=== PATIENT | male | born 1945 | race Two or more races ===

== ENCOUNTER 2021-11-28 08:23 | Inpatient (IN) | payer OTHER ==
[~2021-11-28] VITALS: Ht 165.1 cm; Wt 73.6 kg
[~2021-11-28 08:23] MED LIST: ASPI-543 PO; ATOR40TA52 PO; CALC-437 OR; FENO160T8 PO; GABA100C9 PO; LEVO25TA6 PO; TAMS0.4C36 PO
[2021-11-28] MEDS ORDERED: NITROGLYCERIN 0.4 MG SL TAB SL ONE (08:45)
[2021-11-28] MEDS ORDERED: ASPirin 81 mg TAB PO ONE (08:45)
[2021-11-28 09:07] LABS: Basophils # (auto) 0.1 10 ^3/uL (0-0.2); Basophils % (auto) 0.9 % (0.0-2.0); Eosinophils # (auto) 0 10 ^3/uL (0-0.8); Hematocrit 40.6 % (41.0-53.0); Hemoglobin 13.4 g/dL (13.5-17.5); Lymphocytes # (auto) 2.4 10 ^3/uL (0.4-5.4); Lymphocytes % (auto) 38.9 % (10.0-50.0); Mean Corpuscular Hemoglobin 28.2 pg (28.0-32.0); Mean Corpuscular Hgb Conc. 33.1 g/dL (32.0-36.0); Mean Corpuscular Volume 85.2 fL (80.0-100.0); Monocytes # (auto) 0.6 10 ^3/uL (0-1.3); Monocytes % (auto) 10.2 % (0.0-12.0); Nucleated Red Blood Cells % 0.2 %; Red Blood Cells 4.76 10^6/uL (4.5-5.90); Red Cell Distribution Width 15.5 % (11.8-14.3)
[2021-11-28 09:22] LABS: INR 1.01 (0.9-1.15); Partial Thromboplastin Time 33.1 sec (23.6-33.0)
[2021-11-28 09:30] LABS: Albumin 3.1 g/dL (3.4-5.0); Anion Gap 6 (5-15); Blood Urea Nitrogen 21 mg/dL (7-18); Calcium 8.9 mg/dL (8.5-10.1); Carbon Dioxide 22 mmol/L (21-32); Chloride 103 mmol/L (98-107); Glucose 129 mg/dL (74-106); Potassium 4.4 mmol/L (3.5-5.1); Sodium 131 mmol/L (136-145)
[2021-11-28 09:36] LABS: BUN/Creatinine Ratio 10.9; GFR African American 44 mL/min; GFR Non-African American 36 mL/min
[2021-11-28 09:45] LABS: Aspartate Aminotransferase 40 U/L (15-37)
[2021-11-28 09:50] LABS: Alanine Aminotransferase 36 U/L (16-61); Alkaline Phosphatase 283 U/L (45-117); Bilirubin, Total 0.6 mg/dL (0.2-1.0); Total Protein 8.7 g/dL (6.4-8.2)
[2021-11-28 13:17] LABS: Urine Bacteria FEW /hpf (None Seen); Urine Blood 1+ /uL (Negative); Urine Mucus FEW (None Seen); Urine Specific Gravity 1.016 (1.001-1.035); Urine WBC 3 /hpf (0 - 3)
[2021-11-28] MEDS ORDERED: ONDANSETRON HCL 4 MG/2 ML VIAL IV ONE (14:00)
[2021-11-28] MEDS ORDERED: MORPHINE SULFATE 4 MG/ML SYR/VIAL IV ONE (14:00)
[2021-11-28] MEDS ORDERED: ACETAMINOPHEN 325 MG TAB PO PRN (18:00)
[2021-11-28] MEDS ORDERED: NITROGLYCERIN 0.4 MG SL TAB SL PRN (18:00)
[2021-11-28] MEDS: MORPHINE SULFATE INJECTION 2 MG/ML SYRG IV PRN (20:48)
[2021-11-28] MEDS ORDERED: DEXTROSE (50%) 50ML SYRG IV PRN (21:00)
[2021-11-28] MEDS ORDERED: HEPARIN SODIUM (PORCINE) 5000 UNITS/ML 1ML VIAL IV ONE (21:00)
[2021-11-28] MEDS ORDERED: HEPARIN DRIP/D5W 100UNITS/ML 250 ML IV SCH (21:00)
[2021-11-28] MEDS: ACCU-CHEK COMFORT CURVE STRIP VI SCH (21:56)
[2021-11-28] MEDS: InsuLIN REG 1unit/0.01ml Soln (100units/ml) SC SCH (21:56)
[2021-11-28] MEDS: ATORVASTATIN 20 MG TAB PO SCH (22:03)
[2021-11-28 23:19] LABS: Basophils # (auto) 0.1 10 ^3/uL (0-0.2); Basophils % (auto) 1.2 % (0.0-2.0); Eosinophils # (auto) 0 10 ^3/uL (0-0.8); Hematocrit 37.5 % (41.0-53.0); Hemoglobin 12.4 g/dL (13.5-17.5); Lymphocytes # (auto) 1.7 10 ^3/uL (0.4-5.4); Lymphocytes % (auto) 32.1 % (10.0-50.0); Mean Corpuscular Hemoglobin 28.1 pg (28.0-32.0); Mean Corpuscular Hgb Conc. 33.1 g/dL (32.0-36.0); Monocytes # (auto) 0.6 10 ^3/uL (0-1.3); Monocytes % (auto) 11.5 % (0.0-12.0); Neutrophils # (auto) 2.9 10 ^3/uL (1.6-8.6); Neutrophils % (auto) 55.2 % (37.0-80.0); Nucleated Red Blood Cells % 0.2 %; Red Blood Cells 4.41 10^6/uL (4.5-5.90); Red Cell Distribution Width 15.3 % (11.8-14.3); White Blood Cell 5.2 10^3/uL (4.4-10.8)
[2021-11-28 23:27] LABS: INR 1.05 (0.9-1.15); Partial Thromboplastin Time 33.3 sec (23.6-33.0)
[2021-11-28 23:29] LABS: Amylase 86 U/L (25-115); Lipase 135 U/L (73-393)
[2021-11-29] MEDS ORDERED: ENOXAPARIN SOD 80 MG/0.8ML SYRINGE SC SCH (01:00)
[2021-11-29 04:00] VITALS: BP 124/72
[2021-11-29] MEDS ORDERED: ATOR20TA50 PO (06:13)
[2021-11-29] MEDS ORDERED: CARV3.1240 PO (06:13)
[2021-11-29] MEDS ORDERED: HYDR-4902 PO (06:13)
[2021-11-29] MEDS ORDERED: LEVO50CA3 PO (06:13)
[2021-11-29] MEDS: InsuLIN REG 1unit/0.01ml Soln (100units/ml) SC SCH ×2 (06:16→21:53)
[2021-11-29] MEDS: ACCU-CHEK COMFORT CURVE STRIP VI SCH ×2 (06:16→21:53)
[2021-11-29 08:00] VITALS: BP_SYST 136; BP_SYST 140; BP_DIAS 80; BP_DIAS 82
[2021-11-29] MEDS: ASPirin 81 mg TAB PO SCH (09:02)
[2021-11-29 10:10] LABS: BUN/Creatinine Ratio 9.7; Calcium 9.3 mg/dL (8.5-10.1); Potassium 4.9 mmol/L (3.5-5.1)
[2021-11-29 12:00] VITALS: BP 130/80
[2021-11-29] MEDS ORDERED: MIDAZOLAM HCL 2MG/2ML 2ml VIAL (1mg/ml) ONE (12:19)
[2021-11-29] MEDS ORDERED: diphenhdrAMINE HCL 50 MG/1 ML VL ONE (12:19)
[2021-11-29] MEDS ORDERED: fentaNYL CITRATE 5 ML ONE (12:20)
[2021-11-29] MEDS ORDERED: LIDOCAINE VISCOUS 2% 15ML UD ONE (12:21)
[2021-11-29] MEDS: MORPHINE SULFATE INJECTION 2 MG/ML SYRG IV PRN ×2 (14:58→22:11)
[2021-11-29] MEDS ORDERED: rifAMPin 300 MG CAP PO ONE (16:45)
[2021-11-29] MEDS ORDERED: CEFTRIAXONE SODIUM 2 GM in D5W 5% 50 ML IV ONE (16:45)
[2021-11-29 17:00] VITALS: BP 126/64
[2021-11-29] MEDS ORDERED: cefTRIAXone 1GM/50ML D5W 0 ML IV ONE (19:29)
[2021-11-29 21:00] VITALS: BP 122/71
[2021-11-29] MEDS: ATORVASTATIN 20 MG TAB PO SCH (21:28)
[2021-11-29] MEDS: SULFAMETHOX W/TRIMETH(800/160MG) DS TAB PO SCH (21:29)
[2021-11-30] MEDS ORDERED: HYDROcodone-ACET 5/325MG TAB PO PRN (06:00)
[2021-11-30] MEDS: InsuLIN REG 1unit/0.01ml Soln (100units/ml) SC SCH ×4 (07:00→22:00)
[2021-11-30] MEDS: ACCU-CHEK COMFORT CURVE STRIP VI SCH ×4 (07:08→23:29)
[2021-11-30 07:31] LABS: Basophils # (auto) 0 10 ^3/uL (0-0.2); Basophils % (auto) 0.3 % (0.0-2.0); Eosinophils # (auto) 0 10 ^3/uL (0-0.8); Hematocrit 38.7 % (41.0-53.0); Hemoglobin 12.6 g/dL (13.5-17.5); Lymphocytes # (auto) 1.4 10 ^3/uL (0.4-5.4); Mean Corpuscular Hemoglobin 27.6 pg (28.0-32.0); Mean Corpuscular Hgb Conc. 32.6 g/dL (32.0-36.0); Mean Corpuscular Volume 84.5 fL (80.0-100.0); Monocytes # (auto) 0.7 10 ^3/uL (0-1.3); Monocytes % (auto) 14.7 % (0.0-12.0); Neutrophils # (auto) 2.8 10 ^3/uL (1.6-8.6); Nucleated Red Blood Cells % 0.3 %; Red Blood Cells 4.58 10^6/uL (4.5-5.90); Red Cell Distribution Width 15.5 % (11.8-14.3); White Blood Cell 4.9 10^3/uL (4.4-10.8)
[2021-11-30 07:44] LABS: BUN/Creatinine Ratio 11.3; Calcium 8.8 mg/dL (8.5-10.1); Potassium 4.3 mmol/L (3.5-5.1)
[2021-11-30 08:55] VITALS: BP 104/66
[2021-11-30] MEDS: CEFTRIAXONE SODIUM 2 GM in D5W 5% 50 ML IV SCH (09:59)
[2021-11-30] MEDS: SULFAMETHOX W/TRIMETH(800/160MG) DS TAB PO SCH ×2 (09:59→23:29)
[2021-11-30] MEDS: ASPirin 81 mg TAB PO SCH (09:59)
[2021-11-30] MEDS: rifAMPin 300 MG CAP PO SCH (10:00)
[2021-11-30 13:00] VITALS: BP 129/70
[2021-11-30] MEDS ORDERED: RIFA300C3 PO (13:22)
[2021-11-30] MEDS ORDERED: SULF400T11 PO (13:22)
[2021-11-30 17:00] VITALS: BP 114/75
[2021-11-30 22:00] VITALS: BP 116/66
[2021-11-30] MEDS: ATORVASTATIN 20 MG TAB PO SCH (23:29)
[2021-12-01 05:00] VITALS: BP 106/70
[2021-12-01 06:27] LABS: Basophils # (auto) 0 10 ^3/uL (0-0.2); Basophils % (auto) 0.4 % (0.0-2.0); Eosinophils # (auto) 0 10 ^3/uL (0-0.8); Hematocrit 40.4 % (41.0-53.0); Hemoglobin 13.5 g/dL (13.5-17.5); Lymphocytes # (auto) 2.6 10 ^3/uL (0.4-5.4); Lymphocytes % (auto) 38.6 % (10.0-50.0); Mean Corpuscular Hemoglobin 28.1 pg (28.0-32.0); Mean Corpuscular Hgb Conc. 33.3 g/dL (32.0-36.0); Mean Corpuscular Volume 84.2 fL (80.0-100.0); Monocytes # (auto) 0.8 10 ^3/uL (0-1.3); Monocytes % (auto) 12.4 % (0.0-12.0); Neutrophils # (auto) 3.2 10 ^3/uL (1.6-8.6); Neutrophils % (auto) 48.6 % (37.0-80.0); Nucleated Red Blood Cells % 0.1 %; Red Cell Distribution Width 15.4 % (11.8-14.3); White Blood Cell 6.7 10^3/uL (4.4-10.8)
[2021-12-01 06:28] LABS: BUN/Creatinine Ratio 12.1; Calcium 9.2 mg/dL (8.5-10.1); Potassium 4.2 mmol/L (3.5-5.1)
[2021-12-01] MEDS: InsuLIN REG 1unit/0.01ml Soln (100units/ml) SC SCH ×2 (07:00→11:30)
[2021-12-01] MEDS: ACCU-CHEK COMFORT CURVE STRIP VI SCH ×2 (07:00→12:08)
[2021-12-01] MEDS ORDERED: POLYETHYLENE GLYCOL 17 GM PWDR PO ONE (10:15)
[2021-12-01] MEDS: rifAMPin 300 MG CAP PO SCH (10:36)
[2021-12-01] MEDS: CEFTRIAXONE SODIUM 2 GM in D5W 5% 50 ML IV SCH (10:36)
[2021-12-01] MEDS: SULFAMETHOX W/TRIMETH(800/160MG) DS TAB PO SCH (10:36)
[2021-12-01] MEDS: ASPirin 81 mg TAB PO SCH (10:36)
[2021-12-01 11:54] VITALS: BP 128/66
[2021-12-02] MEDS ORDERED: POLYETHYLENE GLYCOL 17 GM PWDR PO PRN (10:00)
[2021-12-03 14:05] LABS: Hepatitis C Antibody Negative (Negative)
== END 2021-12-01 13:10 | disposition home health service (06) | DRG 868 ==
LOC: ER 08:23 → EDBD 08:23 → TELE 17:47 → TELE-EAST 11-29 03:36 → TELE-CENTR 11-29 03:51
PROVIDERS: ADMIT Nurse Practitioner Family; ATTEND Nurse Practitioner Family
PROC: B24BZZ4 Ultrasonography of Heart with Aorta, Transesophageal (ICD-10-PCS; principal; 2021-11-29)
DX: A23.9 Brucellosis, unspecified (principal); M48.54XA Collapsed vertebra, not elsewhere classified, thoracic region, initial encounter for fracture; I13.0 Hypertensive heart and chronic kidney disease with heart failure and stage 1 through stage 4 chronic kidney disease, or unspecified chronic kidney disease; R78.81 Bacteremia; M46.24 Osteomyelitis of vertebra, thoracic region; R07.89 Other chest pain; Z95.1 Presence of aortocoronary bypass graft; R07.9 Chest pain, unspecified; E11.22 Type 2 diabetes mellitus with diabetic chronic kidney disease; E78.5 Hyperlipidemia, unspecified; I25.10 Atherosclerotic heart disease of native coronary artery without angina pectoris; I34.0 Nonrheumatic mitral (valve) insufficiency; E88.09 Other disorders of plasma-protein metabolism, not elsewhere classified; I50.9 Heart failure, unspecified; R74.8 Abnormal levels of other serum enzymes; N18.30 Chronic kidney disease, stage 3 unspecified; N26.1 Atrophy of kidney (terminal); E11.69 Type 2 diabetes mellitus with other specified complication; M47.9 Spondylosis, unspecified; Z20.822 Contact with and (suspected) exposure to COVID-19; Z83.3 Family history of diabetes mellitus; Z95.2 Presence of prosthetic heart valve; M40.204 Unspecified kyphosis, thoracic region
CPT/HCPCS: 36415; 71045; 72146; 76700; 80048; 80053; 81001; 82150; 82306; 82962; 83690; 83880; 83970; 84100; 84484; 85025; 85610; 85730; 86803; 87040; 87077; 87340; 87426; 93005; 93312; 96374; 96375; 97163; 99152; G0378; J0696; J2250; J2405; J7060

== ENCOUNTER 2022-11-14 13:29 | Emergency (ER) | payer OTHER ==
[~2022-11-14] VITALS: Ht 165.1 cm; Wt 82.0 kg
[~2022-11-14 13:29] MED LIST changes: +ATOR20TA50 PO; -ATOR40TA52 PO; -CALC-437 OR; -FENO160T8 PO; +HYDR-4902 PO; -LEVO25TA6 PO; +LEVO50CA3 PO; +RIFA300C3 PO; +SULF400T11 PO; -TAMS0.4C36 PO
[2022-11-14 13:58] VITALS: BP 137/75
[2022-11-14 16:06] LABS: Basophils # (auto) 0 10 ^3/uL (0-0.2); Basophils % (auto) 0.7 % (0.0-2.0); Eosinophils # (auto) 0.1 10 ^3/uL (0-0.8); Eosinophils % (auto) 1.9 % (0.0-7.0); Hematocrit 35.3 % (41.0-53.0); Hemoglobin 11.5 g/dL (13.5-17.5); Lymphocytes # (auto) 1.6 10 ^3/uL (0.4-5.4); Lymphocytes % (auto) 25.5 % (10.0-50.0); Mean Corpuscular Hemoglobin 30.1 pg (28.0-32.0); Mean Corpuscular Hgb Conc. 32.5 g/dL (32.0-36.0); Mean Corpuscular Volume 92.6 fL (80.0-100.0); Monocytes # (auto) 0.6 10 ^3/uL (0-1.3); Monocytes % (auto) 9.9 % (0.0-12.0); Neutrophils # (auto) 3.9 10 ^3/uL (1.6-8.6); Nucleated Red Blood Cells % 0.2 %; Red Blood Cells 3.82 10^6/uL (4.5-5.90); Red Cell Distribution Width 16.1 % (11.8-14.3); White Blood Cell 6.4 10^3/uL (4.4-10.8)
[2022-11-14 16:26] LABS: Albumin 2.2 g/dL (3.4-5.0); Calcium 8.2 mg/dL (8.5-10.1); Potassium 4.5 mmol/L (3.5-5.1)
[2022-11-14 16:28] LABS: BUN/Creatinine Ratio 5.1
[2022-11-14 16:31] LABS: Bilirubin, Total 0.4 mg/dL (0.2-1.0); Total Protein 7.3 g/dL (6.4-8.2)
[2022-11-14 18:05] LABS: INR 1.03 (0.9-1.15); Partial Thromboplastin Time 31.2 sec (24.6-33.4)
== END 2022-11-14 19:57 | disposition home or self-care (01) ==
LOC: ER 13:29
DX: K74.60 Unspecified cirrhosis of liver (principal); I25.10 Atherosclerotic heart disease of native coronary artery without angina pectoris; E11.9 Type 2 diabetes mellitus without complications; I10 Essential (primary) hypertension; Z79.899 Other long term (current) drug therapy; Z98.890 Other specified postprocedural states
CPT/HCPCS: 36415; 76705; 80053; 82962; 83690; 83880; 85025; 85610; 85730; 93005

== ENCOUNTER → 2023-09-23 | Outpatient (CLI) | payer OTHER, MEDICAID ==
[~2023-09-23] VITALS: Ht 165.1 cm; Wt 72.6 kg
[~2023-09-23] MED LIST changes: +ADENOSINE 61 MG in GIVE UN-DILUTED 0 ML IV STA; +GABA-1308 PO; -GABA100C9 PO; -RIFA300C3 PO; +RIFA300C58 PO
== END | disposition home or self-care (01) ==
LOC: XYW 10:16
PROVIDERS: ATTEND Specialist
DX: Z01.810 Encounter for preprocedural cardiovascular examination (principal); I12.0 Hypertensive chronic kidney disease with stage 5 chronic kidney disease or end stage renal disease; E11.22 Type 2 diabetes mellitus with diabetic chronic kidney disease; N18.6 End stage renal disease; Z95.4 Presence of other heart-valve replacement
CPT/HCPCS: 78452; 93017; A9500; J0153

== ENCOUNTER → 2024-10-11 | Outpatient (CLI) | payer OTHER, MEDICAID ==
[~2024-10-11] VITALS: Ht 165.1 cm; Wt 75.3 kg
[~2024-10-11] MED LIST changes: -ADENOSINE 61 MG in GIVE UN-DILUTED 0 ML IV STA; -ASPI-543 PO; +CARV3.1240 PO; +GABA-1250 PO; -GABA-1308 PO; +HEPARIN SODIUM (PORCINE) 5000 UNITS/ML 1ML VIAL ONE; -HYDR-4902 PO; +IOHEXOL 350 MG/ML 100ML IJ ONE; +LIDOCAINE 2%HCL (LOCAL ANESTH.) INJ 20ML MDV ONE; +MIDAZOLAM HCL 2MG/2ML 2ml VIAL (1mg/ml) ONE; -RIFA300C58 PO; -SULF400T11 PO; +fentaNYL CITRATE 100 MCG/2 ML VL ONE
--- NOTE | 2024-10-11 16:12 | DVH ---
LEFT Upper Extremity Venous Duplex Clinical History: R/O BLOOD CLOT Comparison: None Technique: Duplex Doppler evaluation of the venous system of the LEFT lower neck and upper extremity including color Doppler and spectral/pulsed waveform analysis was performed. Findings: The internal jugular vein demonstrates appropriate compressibility and waveform variability . The subclavian vein is patent on color Doppler evaluation without intraluminal thrombus and demonstra josé miguel waveform variability . The visualized portion of the brachiocephalic vein is patent on color Doppler evaluation without intr aluminal thrombus and demonstrates waveform variability . The axillary vein demonstrates appropriate compressibility and waveform variability . The brachial veins demonstrate appropriate compressibility and patency on Doppler evaluation. The basilic vein demonstrates appropriate compressibility and patency on Doppler evaluation. The cephalic vein demonstrates appropriate compressibility and patency on Doppler evaluation. Left upper extremity brachial-basilic fistula appears patent at its proximal and distal anastomoses a nd throughout its course. Impression: 1. No venous thrombus identified in the LEFT upper extremity vessels evaluated above. If clinical con cern/symptoms persist or worsen, short-interval follow-up study is suggested. 2. Patent left upper extremity fistula. HS:Y
[2024-10-11 18:02] VITALS: BP 163/57; PULSE 74; RESP 12; TEMP 98; O2SAT 97
[2024-10-11 18:17] VITALS: BP 174/78; PULSE 78; RESP 15; O2SAT 97
[2024-10-11 18:32] VITALS: BP 168/69; PULSE 76; RESP 15; O2SAT 97
--- NOTE | 2024-10-12 13:06 | DVH ---
XY FISTULA /SINUS TRACT, HISTORY: DIALYSIS FISTULAGRAM PROCEDURE: Informed consent was obtained. The patient was positioned supine on the fluoroscopic table and IV sedation administered. Ultrasound of the AVF was performed and the optimal access site chosen ; the overlying skin was then prepped with chlorhexidine which was allowed to dry and draped in steri le fashion. Time out was performed. The outflow vein was accessed in antegrade fashion with a microp uncture set with ultrasound guidance. Sequential digital subtraction central venograms were performed in AP projection. The outflow vein was manually compressed for retrograde filling of the anastomosis . The sheath was removed and hemostasis achieved with manual compression using a purse string suture . No immediate complication was identified. FLUOROSCOPY TIME: 1.1 minutes. DAP 27.24 CONTRAST USED: 15 mL . SEDATION: Dr. Kingsley Tolbert was personally responsible for the administration of moderate sedation during the procedure performed, including the use of an independent trained observer who had no other duties during the procedure. The drugs utilized were IV fentanyl and versed (see nursing log for details). The total time of supervision by the attending physician was approximately 30 minutes. FINDINGS: Patent brachio basilic arteriovenous fistula of the left arm. Patent anastomosis and paten t outflow fistula vein. Patent central veins. However a large tributary is seen from the proximal out flow fistula vein with contrast opacification of multiple veins from perforators. IMPRESSION: Widely patent left brachio-basillic arteriovenous fistula and patent central veins. No stenosis or t hrombus seen. However a large tributary vein is seen from the proximal outflow fistula vein with contrast opacifica tion of multiple veins from perforators, which could be stealing blood flow from the fistula. PLAN: Resume hemodialysis. Please remove purse string sutures at next dialysis session
== END | disposition home or self-care (01) ==
LOC: XYW 09:31
PROVIDERS: ATTEND Radiology Diagnostic Radiology
DX: I11.0 Hypertensive heart disease with heart failure (principal); N18.6 End stage renal disease; I82.622 Acute embolism and thrombosis of deep veins of left upper extremity; Z99.2 Dependence on renal dialysis
CPT/HCPCS: 36901; 76080; 93971; C1894; J1644; J2250; J3010; Q9967; 76937; 99152

== ENCOUNTER 2024-10-22 09:42 | Emergency (ER) | payer OTHER, MEDICAID ==
[~2024-10-22] VITALS: Ht 165.1 cm; Wt 75.0 kg
[~2024-10-22 09:42] MED LIST changes: -HEPARIN SODIUM (PORCINE) 5000 UNITS/ML 1ML VIAL ONE; -IOHEXOL 350 MG/ML 100ML IJ ONE; -LIDOCAINE 2%HCL (LOCAL ANESTH.) INJ 20ML MDV ONE; -MIDAZOLAM HCL 2MG/2ML 2ml VIAL (1mg/ml) ONE; -fentaNYL CITRATE 100 MCG/2 ML VL ONE
[2024-10-22 11:59] VITALS: BP 150/92; PULSE 81; RESP 18; TEMP 98; O2SAT 94
--- NOTE | 2024-10-22 12:05 | ED.PDOC ---
History of Present Illness HPI Comments A 79 YEAR OLD MALE PRESENTS TO THE ED WITH COMPLAINT OF SUTURE REMOVAL. PATIENT STATES HE HAD SUTURES PLACED ON HIS LEFT ELBOW REGION 10 DAYS AGO AND IS HERE IN THE ED TODAY TO HAVE THEM REMOVED. PATIENT DENIES FEVER, CHILLS, SHORTNESS OF BREATH, CHEST PAIN, ABDOMINAL PAIN, NAUSEA, VOMITING, HEADACHE, OR OTHER COMPLAINTS. NO OTHER SYMPTOMS OR MODIFYING FACTORS AT THIS TIME. PATIENT IS ALERT, ORIENTED X 4, AND HAS STEADY GAIT. Chief Complaint: Suture Removal Time Seen by MD: 10:05 Primary Care Provider: KARISSA Arellano Notes: Nurses Notes, Medications, Allergies Allergies: Coded Allergies: NO KNOWN ALLERGIES (Unverified , 05/01/16) Home Meds Reported Medications Carvedilol (Carvedilol) 3.125 Mg Tab, 3.125 MG PO BID for HTN, MG 10/08/24 Gabapentin (Gabapentin) 300 Mg Cap, 300 MG PO TID for neuropathy, MG 10/08/24 Levothyroxine Sodium (Levothyroxine Sodium) 50 Mcg Cap, 50 MCG PO, CAP 11/29/21 Atorvastatin Calcium (ATORVASTATIN CALCIUM) 20 Mg Tab, 1 TAB PO DAILY, #30 TAB 5 Refills 11/29/21 Information Source: Patient Mode of Arrival: Ambulatory Severity: Moderate Timing: Days Duration: Since onset, Days Prehospital treatment: None Medication Refill: For: Other (SUTURE REMOVAL) Past Medical History PAST MEDICAL HISTORY: CAD, DM, HTN, Liver Surgical History: CABG Family History Family History: Reviewed,noncontributory to illness Social History Smoker: Non-Smoker Alcohol: Denies ETOH Use Drugs: Denies Drug Use Lives In: Home Constitutional: denies: chills, diaphoresis, fatigue, fever, malaise, sweats, weakness, others EENTM: denies: blurred vision, double vision, ear bleeding, ear discharge, ear drainage, ear pain, ear ringing, eye pain, eye redness, hearing loss, mouth pain, mouth swelling, nasal discharge, nose bleeding, nose congestion, nose pain, photophobia, tearing, throat pain, throat swelling, voice changes, others Respiratory: denies: cough, hemoptysis, orthopnea, SOB at rest, shortness of breath, SOB with excertion, stridor, wheezing, others Cardiovascular: denies: chest pain, dizzy spells, diaphoresis, Dyspnea on exertion, edema, irregular heart beat, left arm pain, lightheadedness, palpitations, PND, syncope, others Gastrointestinal: denies: abdomen distended, abdominal pain, blood streaked bowels, constipated, diarrhea, dysphagia, difficulty swallowing, hematemesis, melena, nausea, poor appetite, poor fluid intake, rectal bleeding, rectal pain, vomiting, others Genitourinary: denies: burning, dysuria, flank pain, frequency, hematuria, incontinence, penile discharge, penile sore, pain, testicle pain, testicle swelling, urgency, others Neurological: denies: dizziness, fainting, headache, left sided numbness, left sided weakness, numbness, paresthesia, pre-existing deficit, right sided numbness, right sided weakness, seizure, speech problems, tingling, tremors, weakness, others Musculoskeletal: denies: back pain, gout, joint pain, joint swelling, muscle pain, muscle stiffness, neck pain, others Integumetry: denies: bruises, change in color, change in hair/nails, dryness, laceration, lesions, lumps, rash, wounds, others Allergic/Immunocompromised: denies: Difficulty Healing, Frequent Infections, Hives, Itching, others Hematologic/Lymphatic: denies: anemia, blood clots, easy bleeding, easy bruising, swollen glands, others Endocrine: denies: excessive hunger, excessive sweating, excessive thirst, excessive urination, flushing, intolerance to cold, intolerance to heat, unexplained weight gain, unexplained weight loss, others Psychiatric: denies: anxiety, bipolar disorder, depression, hopeless, panic disorder, schizophrenia, sleepless, suicidal, others All Other Systems: Reviewed and Negative Physical Exam General Appearance: No Apparent Distress, Normal HEENT: Normal ENT Inspection, PERRL/EOMI, Pharynx Normal, TMs Normal Neck: Full Range of Motion, Non-Tender, Normal, Normal Inspection Respiratory: Chest Non-Tender, Lungs Clear, No Accessory Muscle Use, No Respiratory Distress, Normal Breath Sounds Cardiovascular: No Edema, No JVD, No Murmur, No Gallop, Normal Peripheral Pulse s, Regular Rate/Rhythm Breast Exam: Deferred Gastrointestinal: No Organomegaly, Non Tender, No Pulsatile Mass, Normal Bowel Sounds, Soft Genitalia: Deferred Pelvic: Deferred Rectal: Deferred Extremities: No calf tenderness, Normal capillary refill, Normal inspection, Normal range of motion, Non-tender, No pedal edema Musculoskeletal : Apperance: Normal Neurologic: Alert, collections specialist II-XII nml as Tested, No Motor Deficits, Normal Affect, Normal Mood, No Sensory Deficits Cerebellar Function: Normal Reflexes: Normal Skin: Dry, Lacerations (RIGHT INNER ARM HEALED, NO INFECTION SIGNS. ), Normal Color, Warm Peripheral Pulses: 2+ carotid (R), 2+ carotid (L) Lymphatic: No Adenopathy Was a procedure done? Was a procedure done?: No Differential Dx Considerations may include: ENCOUNTER FOR SUTURE REMOVAL, WOUND RECHECK X-Ray, Labs, Meds, VS Vital Signs Date Time Temp Pulse Resp B/P (MAP) Pulse Ox O2 Delivery O2 Flow Rate FiO2 10/22/24 11:59 98.0 81 18 150/92 (111) 94 98.0 10/22/24 11:59 81 18 94 Room Air 10/22/24 10:02 98.0 81 18 150/92 (111) 94 X-Ray, Labs, Meds, VS Comment EXTERNAL MEDICAL RECORDS REVIEWED: [NONE] INDEPENDENT HISTORIANS: [NONE] SOCIAL DETERMINANTS OF HEALTH: [NONE] LABS ORDERED: NONE REVIEWED AND INTERPRETED RESULTS: NONE IMAGING ORDERED: NONE TREATMENTS ORDERED: NONE PROCEDURES PERFORMED: NONE CRITICAL CARE TIME: NONE I HAVE DISCUSSED THE PATIENT WITH THE ATTENDING PHYSICIAN DR. GARCIA AND HE AGREES WITH THE PATIENT'S PLAN OF CARE AND DISPOSITION. BASED ON HISTORY OF PRESENT ILLNESS, AND PHYSICAL EXAM, PATIENT WILL BE DISCHARGED HOME. SHARED DECISION MAKING: PATIENT INSTRUCTED TO FOLLOW UP WITH PRIMARY CARE PROVIDER IN 1-2 DAYS FOR RE-EVALUATION OF SYMPTOMS. PATIENT VERBALIZES UNDE RSTANDING TO RETURN TO ED FOR NEW OR WORSENING SYMPTOMS OR IF FOLLOW UP WITH PCP CANNOT BE OBTAINED. PATIENT FEELS COMFORTABLE GOING HOME AT THIS TIME. ALL QUESTIONS ADDRESSED AT TIME OF DISCHARGE. Time of 1ST Reevaluation: 12:12 Reevaluation 1ST: Improved Patient Education/Counseling: Diagnosis, Treatment, Need For Follow Up Family Education/Counseling: Diagnosis, Treatment, Need For Follow Up Medical Screening: No EMC Exist At This Time Departure 1 Departure Time of Disposition: 12:12 Impression: Primary Impression: Encounter for removal of sutures Disposition: 01 HOME / SELF CARE / HOMELESS Condition: Stable Additional Instructions: FOLLOW-UP WITH PCP IN 1 TO 2 DAYS. RETURN TO ED FOR ANY NEW OR WORSENING SYMPTOMS. Discharged With: Self, Relative Critical Care Note Critical Care Time?: No Stability Stability form required: No I personally scribed for YUDELKA ALLISON ([email or web address]) on 10/22/24 at 12:05. E lectronically submitted by Edward Dotson ([email or web address]). YUDELKA ALLISON Oct 22, 2024 12:05
== END 2024-10-22 12:01 | disposition home or self-care (01) ==
LOC: ER 09:42
DX: S51.012D Laceration without foreign body of left elbow, subsequent encounter (principal); I10 Essential (primary) hypertension; E11.9 Type 2 diabetes mellitus without complications; I25.10 Atherosclerotic heart disease of native coronary artery without angina pectoris; Z48.02 Encounter for removal of sutures; Z95.1 Presence of aortocoronary bypass graft; Z79.899 Other long term (current) drug therapy; X58.XXXD Exposure to other specified factors, subsequent encounter